=== PATIENT | female | born 1965 | race Caucasian/White ===

== ENCOUNTER → 2018-10-25 11:33 | Day surgery (SDC) | payer BC ==
[~2018-10-25 11:33] MED LIST: Buffered Lidocaine 1% SYRIN* 1 ML/SYRINGE INTRADERM ONE; Dexamethasone IV* 4 MG/ML 1 ML (4 MG) IV SLOW PU ONE; Dexamethasone IV* 4 MG/ML 1 ML (4 MG) ONE; DiMENhydriNATE IV* 50 MG/ML VIAL IV PUSH PRN; Famotidine IV* 10 MG/ML 2 ML (20 mg) IV ONE; Famotidine IV* 10 MG/ML 2 ML (20 mg) ONE; KETAMINE HCL* 50 MG/ML 10 ML VIAL ONE; Lactated Ringers 1000 ML Bag* 1,000 ML IV SCH; Lidocaine 2% PF * 5 ML VIAL ONE; Midazolam* 1 MG/ML 5 ML VIAL (5 MG) ONE; Naloxone* 0.4 MG/ML 1 ML VIAL IV PRN; Ondansetron ODT TAB* 4 MG ONE; Ondansetron TAB* 4 MG PO ONE; PROCHLORPERAZINE INJ 5 MG/ML 2 ML VIAL IV PRN; Propofol* 10 MG/ML 20 ML BTL ONE; Propofol* 500 MG/50 ML BTL ONE; fentaNYL* 50 MCG/ML 2 ML VIAL (100 MCG VIAL) IV PRN; fentaNYL* 50 MCG/ML 2 ML VIAL (100 MCG VIAL) ONE; oxyCODONE/Acetamin 5/325 MG* TAB PO PRN
[2018-10-25 15:11] VITALS: BP 116/84
--- NOTE | 2018-10-25 16:35 | PRO ---
DATE OF PROCEDURE: 10/25/18 - ENDO PROCEDURE: Colonoscopy. REFERRING PROVIDER: Michelle Arredondo MD.* INDICATIONS: Father with colon cancer in his early 50s. The patient has not had a prior colonoscopy. Denies any GI symptoms. Attempted colonoscopy with moderate sedation was performed in September 2018. Unfortunately, the patient was very poorly sedated with the moderate sedation and rectosigmoid was challenging. She was therefore rescheduled today with anesthesia. Completed Suprep preparation. Medications given by Anesthesia. DESCRIPTION OF PROCEDURE: Full disclosure of risks was reviewed with the patient as detailed on the consent form. The patient was placed in the left lateral decubitus position and monitored with continuous pulse oximetry, capnography, interval blood pressure monitoring, and direct observation. After anorectal examination was performed, the pediatric colonoscope was inserted into the rectum and advanced to the level of the cecum as identified by the ileocecal valve and appendiceal orifice. Complete view of the cecum was obtained including the medial wall between the IC valve and the appendiceal orifice. Quality of the prep was excellent. Abdominal pressure, particularly in the sigmoid was used to help the scope move through the rectosigmoid junction which was slightly tortuous. Advancement of the colonoscope was otherwise straightforward. Careful inspection was made as the colonoscope was withdrawn. Retroflexion was performed in the rectum. Findings and interventions are described below. FINDINGS: Anorectal exam was unremarkable. Scope was slowly and carefully advanced to the level of the cecum. Careful inspection was made as the colonoscope was withdrawn. No polyps, masses, AVMs, or diverticulosis were seen. Mucosa appeared normal. Retroflexion revealed internal hemorrhoids. Scope was withdrawn from the patient. The patient tolerated the procedure well and was recovered in the GI recovery area. IMPRESSION: 1. Complete colonoscopy to cecum. 2. No polyps. 3. Internal hemorrhoids. FOLLOWUP: Repeat colonoscopy in 5 years given family history. Thank you very much for this referral, Dr. Arredondo. [id number]/[facility] #: [id number] ZAKIA
== END | disposition home or self-care (01) ==
LOC: ENDO 11:33
PROVIDERS: ATTEND Internal Medicine Gastroenterology
DX: Z12.11 Encounter for screening for malignant neoplasm of colon (principal); K64.8 Other hemorrhoids; Z80.0 Family history of malignant neoplasm of digestive organs; Z88.8 Allergy status to other drugs, medicaments and biological substances
CPT/HCPCS: A9270-GY; J1100; J2250; J2704; J3010

== ENCOUNTER 2019-08-13 08:52 | Emergency (ER) | payer BC, OTHER ==
--- NOTE | 2019-08-13 09:04 | ED ---
Lower Extremity - HPI Summary HPI Summary: 53-year-old female with no significant past medical history presents to the emergency department today complaining of right ankle and knee pain after fall 1 hour ago. She states she was walking through the parking lot and slipped on a pebble and twisted her ankle. She endorses 6 out of 10 pain to the lateral aspect of her right ankle. She is no numbness or tingling. She has full range of motion however there is pain with palpation. She has not taken any medication prior to arrival. She denies loss of consciousness or any other associated trauma with her fall. She denies history of trauma to this ankle in the past. She does not take blood thinners. She denies fever, chest pain, shortness of breath, pain with urination, abdominal pain, rash. - History of Current Complaint Chief Complaint: EDExtremityLower Stated Complaint: fall per pt Time Seen by Provider: 08/13/19 08:56 Hx Obtained From: Patient Mechanism Of Injury: Fall From A Standing Position Onset of Pain: Immediate Onset/Duration: Hours Severity Initially: Moderate Severity Currently: Moderate Pain Intensity: 6 Pain Scale Used: 0-10 Numeric Timing: Constant Location: Is Discrete @ - Right lateral malleolus Character Of Pain: Aching Associated Signs And Symptoms: Negative: Swelling, Redness, Bruising, Weakness Aggravating Factor(s): Standing, Movement, Weight Bearing, Stairs Alleviating Factor(s): Rest, Elevation, Ice Able to Bear Weight: Yes - Allergies/Home Medications Allergies/Adverse Reactions: Allergies Allergy/AdvReac Type Severity Reaction Status Date / Time No Known Allergies Allergy Verified 08/13/19 09:08 PMH/Surg Hx/FS Hx/Imm Hx Endocrine/Hematology History: Denies: Hx Anticoagulant Therapy, Hx Diabetes, Hx Thyroid Disease Cardiovascular History: Denies: Hx Hypercholesterolemia, Hx Hypertension, Hx Peripheral Vascular Disease, Other Cardiovascular Problems/Disorders Respiratory History: Denies: Other Respiratory Problems/Disorders GI History: Reports: Other GI Disorders - has bowel adhesions from previos surgerys Musculoskeletal History: Denies: Hx Arthritis, Hx Rheumatoid Arthritis, Hx Osteoporosis, Other Musculoskeletal History Sensory History: Reports: Hx Contacts or Glasses Denies: Hx Cataracts, Hx Glaucoma, Hx Hearing Aid Opthamlomology History: Reports: Hx Contacts or Glasses Denies: Hx Cataracts, Hx Glaucoma Neurological History: Reports: Hx Seizures - seizures 5 yrs ago, ok now Denies: Hx Headaches, Hx Transient Ischemic Attacks (TIA) Psychiatric History: Denies: Hx Anxiety, Hx Depression - Cancer History Hx Chemotherapy: No Hx Radiation Therapy: No - Surgical History Surgery Procedure, Year, and Place: c section 1987, [facility]. 1984, ovarian cyst, [facility]. 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, 1986, [facility] Hx Anesthesia Reactions: No Infectious Disease History: No Infectious Disease History: Denies: Traveled Outside the in Last 30 Days - Social History Alcohol Use: Occasionally Alcohol Amount: 1-2 per day 5x per week Hx Substance Use: No Substance Use Type: Reports: None Hx Tobacco Use: No Smoking Status (MU): Never Smoked Tobacco Review of Systems Constitutional: Negative Eyes: Negative ENT: Negative Cardiovascular: Negative Respiratory: Negative Gastrointestinal: Negative Positive: Arthralgia, Decreased ROM Skin: Negative Neurological: Negative Psychological: Normal All Other Systems Reviewed And Are Negative: Yes Physical Exam Triage Information Reviewed: Yes Vital Signs On Initial Exam: Initial Vitals Temp Pulse Resp BP Pulse Ox 98.6 F 89 18 143/99 100 08/13/19 08:53 08/13/19 08:53 08/13/19 08:53 08/13/19 08:53 08/13/19 08:53 Vital Signs Reviewed: Yes Appearance: Positive: Well-Appearing, No Pain Distress, Well-Nourished Skin: Positive: Warm, Skin Color Reflects Adequate Perfusion Head/Face: Positive: Normal Head/Face Inspection Eyes: Positive: EOMI, CHRISTIAN ENT: Positive: Hearing grossly normal - Was Respiratory/Lung Sounds: Positive: Clear to Auscultation, Breath Sounds Present - so Cardiovascular: Positive: RRR, S1, S2 Abdomen Description: Positive: Nontender, Soft Musculoskeletal: Positive: Strength/ROM Intact, Pain @ - Right lateral malleoli , talus bone, Other - No evidence of edema, erythema, ecchymosis noted to the right lower extremity. There is tenderness to palpation of the right lateral malleoli and talus bone. She has full strength and range of motion in both lower tremors bilaterally. 2+ dorsalis pedis and posterior tibialis pulses bilaterally. Brisk capillary refill bilaterally. She has full sensation bilaterally. Neurological: Positive: Sensory/Motor Intact, Alert, Oriented to Person Place, Time, Facial Symmetry - Was done, Speech Normal Psychiatric: Positive: Normal AVPU Assessment: Alert - and she Procedures - Sedation Patient Received Moderate/Deep Sedation with Procedure: No - Splinting Right Lower Extremity Hand-Made Type: plaster posterior and U-splint Pre-Proc Neuro Vasc Exam: normal Post-Proc Neuro Vasc Exam: normal Splint Applied by Provider: [facility] - Vital Signs Vital Signs Temp Pulse Resp BP Pulse Ox 08/13/19 08:53 98.6 F 89 18 143/99 100 - Laboratory Lab Statement: Any lab studies that have been ordered have been reviewed, and results considered in the medical decision making process. Lower Extremity Course/Dx - Course Course Of Treatment: The patient externally rotated her ankle walking into the hospital today. There was no fall. She reports pain on the lateral aspect of her right ankle, and has exquisite tenderness there. There is no tenderness over the medial malleolus and there is no tenderness over the base of the fifth metatarsal. The patient will be splinted and referred to orthopedics for follow -up, nonweightbearing with crutches provided. - Diagnoses Differential Diagnosis/HQI/PQRI: Positive: Arthritis, Fracture (Closed), Sprain , Strain Provider Diagnoses: Fracture of lateral malleolus of right fibula Discharge ED - Sign-Out/Discharge Documenting (check all that apply): Patient Departure - Discharge Plan Condition: Stable Disposition: HOME Patient Education Materials: Ankle Fracture (ED) Referrals: Michelle Arredondo MD [Primary Care Provider] - Negrito Hobbs MD [Medical Doctor] - 1 Day Additional Instructions: You were diagnosed with a fracture to the lateral malleolar bone of your right leg. Please stay in the splint until you're seen by orthopedics and do not weight-bear. Please rest, elevate, ice your ankle for alleviation of symptoms. You may take ibuprofen for pain, 600 mg every 6 hours for one week. If you develop any new or worsening symptoms including increased pain, inability to move the right lower extremity, numbness of the right lower extremity please return to the emergency Department immediately. - Billing Disposition and Condition Condition: STABLE Disposition: Home
[2019-08-13] MEDS ORDERED: Ibuprofen TAB* 600 MG PO ONE (09:10)
[2019-08-13 12:39] VITALS: BP 126/94
== END 2019-08-13 12:39 | disposition home or self-care (01) ==
LOC: ED 08:52
DX: S82.61XA Displaced fracture of lateral malleolus of right fibula, initial encounter for closed fracture (principal); W01.0XXA Fall on same level from slipping, tripping and stumbling without subsequent striking against object, initial encounter; Y92.481 Parking lot as the place of occurrence of the external cause
CPT/HCPCS: 99282; A9270-GY

== ENCOUNTER 2021-05-27 11:06 | Observation (INO) ==
[2021-05-27] MEDS ORDERED: NS 0.9% 1000 ml BAG 1,000 ML IV ONE ×2 (11:12→12:34)
[2021-05-27 11:26] LABS: ABS Eosinophils 0.1 10^3/ul (0-0.6); ABS Lymphocytes 2.1 10^3/ul (1.0-4.8); ABS Monocytes 0.5 10^3/ul (0-0.8); ABS Neutrophils 3.4 10^3/ul (1.5-7.7); Eosinophil % 2.4 %; Hematocrit 43 % (35-47); Hemoglobin 14.6 g/dL (12.0-16.0); Lymphocyte % 33.7 %; Mean Corpuscular HGB Conc 34 g/dL (31-36); Mean Corpuscular Hemoglobin 31 pg (27-31); Mean Corpuscular Volume 91 fL (80-97); Mean Platelet Volume 8.4 fL (7.4-10.4); Nucleated Red Blood Cells % 0.1; Platelet Count 282 10^3/uL (150-450); Red Cell Distribution Width 13 % (10-15); White Blood Count 6.2 10^3/uL (3.5-10.8)
[2021-05-27] MEDS ORDERED: Iodixanol (CONTRAST) 320 MG/ML 100 ML SDV IV ONE (11:29)
[2021-05-27 11:33] LABS: Activated Partial Thrombo Time 33.1 seconds (26.0-38.0); INR 0.94 (0.86-1.15)
[2021-05-27 12:10] LABS: Albumin 4.9 g/dL (3.2-5.2); Albumin/Globulin Ratio 1.6 (1-3); Calcium 9.8 mg/dL (8.6-10.3); EGFR Non-African American 71.1 (>60); HDL Cholesterol 66.8 mg/dL; Potassium 3.7 mmol/L (3.5-5.0); Total Bilirubin 0.4 mg/dL (0.2-1.0); Total Protein 7.9 g/dL (6.4-8.9)
[2021-05-27] MEDS ORDERED: Al Hydrox/Mg Hydrox/Simet LIQ 30 ML UDC PO PRN (16:21)
[2021-05-27 17:38] LABS: Urine Appearance Clear; Urine Bilirubin Negative (Negative); Urine Blood Negative (Negative); Urine Color Colorless; Urine Glucose Negative (Negative); Urine Ketones Negative (Negative); Urine Nitrite Negative (Negative); Urine Protein Negative (Negative); Urine Urobilinogen Negative (Negative)
[2021-05-28] MEDS ORDERED: Aspirin EC 81 mg TAB.EC (enteric coated) PO SCH (09:00)
[2021-05-28 13:45] VITALS: BP 128/85
[2021-05-28 19:20] LABS: Phospholipid Ab IgG < 9.4 GPL; Phospholipid Ab IgM, S < 9.4 MPL
== END 2021-05-28 15:14 | disposition home or self-care (01) ==
LOC: MEDTELE 11:06 → ED 11:06 → SUATTDRO 16:21 → MEDTELE 19:02
PROVIDERS: ADMIT Internal Medicine; ATTEND Hospitalist